=== PATIENT | female | born 1945 ===

== ENCOUNTER 2019-04-05 20:30 | Outpatient (CLI) | payer MEDICARE, BC | END 2019-04-05 20:31 | disposition home or self-care (01) | LOC: SLEEPLAB 20:30 | PROVIDERS: ATTEND Otolaryngology Plastic Surgery within the Head & Neck | DX: G47.33 Obstructive sleep apnea (adult) (pediatric) (principal); G47.00 Insomnia, unspecified; R53.83 Other fatigue; I10 Essential (primary) hypertension | CPT/HCPCS: 95811 ==